=== PATIENT | male | born 1955 | race Caucasian/White ===

== ENCOUNTER 2019-05-21 10:55 | Outpatient (REF) | payer BC, SELFPAY ==
[2019-05-21 19:44] LABS: HCT 41.2 % (40.0-50.0); HGB 14.4 g/dL (13.5-17.5); Mean Corpuscular Hemoglobin 28.8 pg (27.0-33.0); Mean Corpuscular Volume 82.4 fL (80-95); Mean Platelet Volume 10.3 fL (8.0-11.0); Platelet Count 134 x1000/uL (130-400); White Blood Cell Count 4.31 k/cumm (4.4-10.8)
[2019-05-21 20:13] LABS: Anion Gap 10.8 mmol/L (3-11); BUN 24 mg/dL (7-18); CO2 25.2 mmol/L (21.0-32.0); CREATININE 0.92 mg/dL (0.70-1.30); Calculated LDL 156; Chloride 107 mmol/L (98-107); Cholesterol 200 mg/dL (50-200); Glucose 94 mg/dL (70-100); HDL Cholesterol 33 mg/dL (40-60); Potassium 4.3 mmol/L (3.5-5.1); Sodium 143 mmol/L (136-145); Triglyceride 58 mg/dL (30-150)
== END 2019-05-21 11:15 ==
LOC: NCHCN 10:55
PROVIDERS: PCP Internal Medicine; Visit Provider Nurse Practitioner Family
DX: Z00.00 Encounter for general adult medical examination without abnormal findings (principal); R73.01 Impaired fasting glucose; E78.00 Pure hypercholesterolemia, unspecified; I10 Essential (primary) hypertension; K13.70 Unspecified lesions of oral mucosa
CPT/HCPCS: 80048; 80061; 83721; 85027; 87070; 87205

== ENCOUNTER 2021-12-28 08:00 | Outpatient (REF) | payer BC, SELFPAY ==
[2021-12-28 16:16] LABS: Hemoglobin A1C 5.3 % (<5.7)
[2021-12-28 16:17] LABS: ALT 21 U/L (16-63); AST 19 U/L (15-37); Albumin 4.1 g/dL (3.4-5.0); Alkaline Phosphatase 56 U/L (46-116); Anion Gap 10.4 mmol/L (3-11); BUN 18 mg/dL (7-18); Bilirubin, Total 0.8 mg/dL (0.2-1.0); CO2 24.6 mmol/L (21.0-32.0); CREATININE 0.9 mg/dL (0.70-1.30); Calcium 9.3 mg/dL (8.5-10.1); Chloride 104 mmol/L (98-107); Glucose 95 mg/dL (74-106); Potassium 4.4 mmol/L (3.5-5.1); Sodium 139 mmol/L (136-145); Total Protein 7.3 g/dL (6.4-8.2)
[2021-12-29 10:07] LABS: Hepatitis C Ab w Rflx HCV PCR Negative (Negative)
[2021-12-29 10:17] LABS: HIV-1/2 Ag & Ab Screen Negative (Negative)
== END 2021-12-28 08:01 | disposition home or self-care (01) ==
LOC: LBN 08:00
PROVIDERS: Visit Provider Nurse Practitioner Family
DX: Z00.00 Encounter for general adult medical examination without abnormal findings (principal); E78.00 Pure hypercholesterolemia, unspecified; R73.03 Prediabetes; I10 Essential (primary) hypertension; Z11.4 Encounter for screening for human immunodeficiency virus [HIV]; Z11.59 Encounter for screening for other viral diseases
CPT/HCPCS: 80053; 86803; 87389; 83036

== ENCOUNTER 2022-01-19 02:47 | Outpatient (CLI) | payer BC, SELFPAY ==
--- NOTE | 2022-01-19 | DI.MRI_ITS ---
Exam(s) MR UPPER JOINT RT WO CLINICAL HISTORY: PAIN RT SHOULDER M25.511, FALL DECREASED ROM AND STRENGTH. TECHNIQUE: Multiplanar multisequence MRI was performed. COMPARISON: None FINDINGS: MR examination of the shoulder was performed according to the usual protocol. There is a moderate effusion of the glenohumeral joint. There is fluid in the subacromial subdeltoid bursa. Bones and labrum: There are prominent hypertrophic degenerative changes at the acromioclavicular join t. There are moderate marginal osteophytes of the glenoid and humeral head consistent with degenerat roseline change. There is apparent articular cartilage thinning of the humeral head. There is a probable superior and anterior labral tear.. Rotator cuff: There is a full-thickness tear of the supraspinatus tendon with fraying of the tendon, at the supraspinatus footprint, the tear measures up to about 12 millimeter in width and 3 millimete rs in height period portions of superior aspect of subscapularis tendon may also be torn at the humer al attachment. There is no gross retraction of subscapularis, the supraspinatus tendon does not appe ar significantly retracted period infraspinatus tendon shows marked thickening, particularly distally . There is some intra cysts substance tearing of the infraspinatus in the myotendinous junction andra on. Minor undersurface tearing may be present near the humeral attachment. Abnormal thickening of t eres minor tendon also appears to be present period. Rotator interval structures are poorly defined, biceps tendon is markedly displaced medially but not grossly torn period. There is no gross fatty infiltration of the supraspinatus muscle, however the muscle is probably mild ly decreased in size in comparison to its expected size. Less than 30 percent reduction in size. IMPRESSION: Rotator cuff tear involving supraspinatus tendon predominantly, as well as portions of infraspinatus and subscapularis tendon as described above. No gross retraction. Marked medial displacement biceps tendon consistent with a rotator interval tear. Probable SL AP labral tear. DATA REPOSITORY:
== END 2022-01-19 03:07 ==
PROVIDERS: Visit Provider Nurse Practitioner Family
DX: M25.511 Pain in right shoulder (principal); M25.411 Effusion, right shoulder; M19.011 Primary osteoarthritis, right shoulder; S46.011A Strain of muscle(s) and tendon(s) of the rotator cuff of right shoulder, initial encounter; M67.813 Other specified disorders of tendon, right shoulder; W19.XXXA Unspecified fall, initial encounter
CPT/HCPCS: 73221

== ENCOUNTER 2022-02-10 10:33 | Outpatient (CLI) | payer BC, SELFPAY ==
--- NOTE | 2022-02-10 09:45 | DI.RAD_ITS ---
Exam(s) XR SHOULDER RT COMPLETE 2+V EXAM: XR SHOULDER RT COMPLETE 2+V CLINICAL HISTORY: right shoulder pain. TECHNIQUE: 2D digital imaging was performed. COMPARISON: No exams were available for comparison FINDINGS: Two views No evidence of fracture or dislocation. Minimal degenerative changes. No osteophytes. No osseous l esions. Bone density is normal. IMPRESSION: DATA REPOSITORY: RADIATION DOSE DELIVERED:
--- OUTSIDE RECORDS SUMMARY | 2022-02-10 10:35 | XMS_ITS | Continuity of Care Document ---
:1955 Author Organization [facility] Address [address] [place] [address] Care Team Providers Name Role Phone Given Primary Care Physician Unavailable Goodman Attending Physician Unavailable Allergies, Adverse Reactions, Alerts Allergen Type Severity Reaction Last Updated Verified Status NO KNOWN DRUG ALLERGIES Allergy May 09, 2012 N Active Medications Active Medications Medication Dose Units Route Sig Start Date Status Terazosin 5 mg ORAL DAILY May 09, 2012 Active Amlodipine 5 mg ORAL DAILY May 09, 2012 Activ e Lisinopril [Zestril] 40 mg ORAL DAILY May 09, 2012 Active Pravastatin Sodium [Pravachol] 20 mg ORAL DAILY May 09, 2012 Active Aspirin 81 mg ORAL DAILY May 09, 2012 Active Problem List No problem information available. Procedures No known history of procedures. Relevant Diagnostic Tests and/or Laboratory Data Laboratory Results Test Date/Time Result Interp. Ref. Range Result Comment Urine Creatinine January 24, 209.2 mg/dL No Re ference 2016 11:02am Range established. Urine Random January 24, 1.1 Microalbumin 2016 11:02am Urine January 24, 5.3 ug/mg CR Normal: <3 0 ug/mg creatinine Microalbumin/Creatinin 2016 11:02am Microalbuminuria: 30 - 300 ug/mg creatinine e Ratio Clinical Album inuria: >300 ug/mg creatinine Sodium Level January 24, 142 mmol/L [phone] 11:02am Potassium Level January 24, 4.2 mmol/L 3.6-5.0 2016 11:02am Chloride Level January 24, 104 mmol/L 98-107 2016 11:02am Carbon Dioxide Level January 24, 27 mmol/L 2016 11:02am Anion Gap January 24 7-16 2016 11:02am Blood Urea Nitrogen January 24, 17 mg/dL -2016 11:02am Creatinine January 24, 0.9 mg/dL 0.66-1.25 2016 11:02am Glomerular Filtration January 24, > 60 mL/min Rate Calc 2017 11:02am Glucose Level January 24, 93 mg/dL 70-100 2017 11:02am Calcium Level January 24, 9.5 mg/dL 8.4-10.2 2017 11:02am Calcium Adjusted for January 24, 9.4 mg/dL 8.4-10.2 Albumin 2017 11:02am Total Bilirubin January 24, 1.2 mg/dL 0.2-1.3 2017 11:02am Aspartate Amino Transf January 24, 43 U/L 17-59 (AST/SGOT) 2017 11:02am Alanine January 24, 80 U/L High 21-72 Aminotransferase 2017 11:02am (ALT/SGPT) Total Protein January 24, 7.2 g/dL 6.3-8.2 2016 11:02am Albumin January 24, 4.4 g/dL 3.5-5.0 2016 11:02am Cholesterol Level January 24, 196 mg/dL 59-199 2016 11:02am HDL Cholesterol January 24, 28 mg/dL Low 40-60 The [place] Cholesterol Education Program (NCEP) has set the following guidelines (reference values) for cholesterol, HDL: 2016 11:02am Low HDL: <40 mg/dL Normal: 40-60 mg/dL Desirable: >60 mg/dL LDL Cholesterol January 24, 137.8 mg/dL High 0-129 2016 11:02am VLDL Cholesterol January 24, 30.2 mg/dL 0-32 2016 11:02am Cholesterol/HDL Ratio January 24, 7.00 High 0-3.9 2016 11:02am Triglycerides Level January 24, 151 mg/dL High 0-149 2016 11:02am Alkaline Phosphatase January 24, 57 U/L 38-126 2016 11:02am Advance Directives Advance Directive Response Recorded Date/Time Do we have a copy on file here at [facility]? Unknown M arch 2016 7:00am Does patient have an Advanced Directive? Yes January 24, 2017 10:57am Pt has a Living Will? Yes January 24, 2017 10:57am Pt has a Power of Night Custodian? Yes January 24, 2017 10:57am Chief Complaint and Reason for Visit Encounter Admit Date Chief Complaint Reason for Visit Departed Clinical January 24, 2017 10:57am Lab Hospital Discharge Instructions No known hospital discharge instructions. Hospital Discharge Medications Medication Dose Units Route Sig Qty Days Order Date Status In structions Terazosin 5 mg ORAL DAILY May 09, 2012 Active Amlodipine 5 mg ORAL DAILY May 09, 2012 Active Lisinopril 40 mg ORAL DAILY May 09, 2012 Active Pravastatin Sodium 20 mg ORAL DAILY May 09 2 Active Aspirin 81 mg ORAL DAILY May 09, 2012 Active Encounters Encounter Facility Location Admit/Visit Discharge/Departure Atte nding Date Date Provider Departed [facility] January 24, January 24, 2017 Meng [facility] 2016 10:57am 10:58am Dalila Functional Status No known functional status. Immunizations No known immunizations. Payers Payer Policy Type Covered Covered Relationship Subscriber Subs criber Id Name Democrat Democrat Id CBA BLUE Commercial LEATHA [id number] Spouse LEATHA [id number] TURNER 3 TURNER [facility] BLUE Commercial LOWELL TURNER [id number] Self/Same as LOWELL TOMPKINS [id number] CROSS Patient SELF PAY Personal Plan of Care No Known Plan of Care Information Social History No known social history. Vital Signs No known vital signs results.
--- OUTSIDE RECORDS SUMMARY | 2022-02-10 10:35 | XMS_ITS | Continuity of Care Document ---
:1955 Author Organization [facility] Address [address] [place] [address] Care Team Providers Name Role Phone Rex Primary Care Physician Unavailable Keira Attending Physician Unavailable Allergies, Adverse Reactions, Alerts [...] Problem List No problem information available. Procedures Procedure Date Status Cervical Spine 4 or 5 vw March 24, 2017 completed Relevant Diagnostic Tests and/or Laboratory Data Laboratory [...] creatinine Sodium Level January 24, 142 mmol/L [phone] 11:02am Potassium Level January 24, 4.2 mmol/L 3.6-5.0 2016 11:02am Chloride Level January 24, 104 mmol/L 98-107 2016 11:02am Carbon Dioxide Level January 24, 27 mmol/L 2016 11:02am Anion Gap January 24 7-16 2016 11:02am Blood Urea Nitrogen January 24, 17 mg/dL 07-23 11:02am Creatinine January 24, 0.9 mg/dL 0.66-1.25 2017 11:02am Glomerular Filtration January 24, > 60 mL/min Rate Calc 2017 11:02am Glucose Level January 24, 93 mg/dL 70-100 2017 11:02am Calcium Level January 24, 9.5 mg/dL 8.4-10.2 2017 11:02am Calcium Adjusted for January 24, 9.4 mg/dL 8.4-10.2 Albumin 2017 11:02am Total Bilirubin January 24, 1.2 mg/dL 0.2-1.3 2016 11:02am Aspartate Amino Transf January 24, 43 [...] mg/dL 0-32 2016 11:02am Cholesterol/HDL Ratio January 24 7.00 High 0-3.9 2016 11:02am Triglycerides Level January 24, 151 mg/dL High 0-149 2016 11:02am Alkaline Phosphatase January 24, 57 U/L 38-126 2016 11:02am Advance Directives Advance Directive Response Recorded Date/Time Do we have a copy on file here at [facility]? Unknown M arch 2016 7:00am Does patient have an Advanced Directive? Yes January 24, 2017 10:57am Pt has a Living Will? Yes January 24, 2017 10:57am Pt has a Power of Concrete Finisher? Yes January 24, 2017 10:57am Chief Complaint and Reason for Visit Encounter Admit Date Chief Complaint Reason for Visit Departed Clinical March 24, 2017 9:48am Xray Hospital Discharge Instructions No known hospital discharge [...] Discharge/Departure Atte nding Date Date Provider Departed [facility] March 24, March 24, 2017 [facility]49[facility] Dep[facility]ed [facility] 24[facility] 10:[facility] 10:58am Dalila Functional Status No known functional status. Immunizations No known immunizations. Payers Payer Name Policy Type Covered Covered Relationship Subscriber Sub scriber Constitution Party Constitution Party Id Id Culturalite [id number] Self/Same as LOWELL TOMPKINS [id number] [facility] Patient EMPLOYEES [employer] LEATHA [id number] Spouse LEATHA [id number] TURNER TOMPKINS [employer] Commercial LEATHA [id number] Spouse LEATHA [id number] TURNER TOMPKINS [facility] [employer] LOWELL [id number] Self/Same as LOWELL TOMPKINS [id number] CROSS (DO TURNER Patient NOT USE) SELF PAY Personal Plan of Care No Known Plan of Care Information Social History No known social history. Vital Signs No known vital signs results.
--- OUTSIDE RECORDS SUMMARY | 2022-02-10 10:35 | XMS_ITS ---
:1955 Author Care Team Providers Name Role Phone Prateek Kelley Primary Care Provider Unavailable Allergies Code Code System Name Reaction Severity Status Onset NKDA ? Medications Name Status Start Date Stop Date ? ? amlodipine 5 mg-benazepril 10 mg capsule Active ? Not available aspirin 81 mg tablet,delayed release Active ? Not available Fluzone Quad 2018-19(PF) 60 mcg(15 Active ? Not available mcgx4)/0.5 mL intramuscular syringe lisinopril 10 mg tablet Active ? Not avai lable pravastatin 40 mg tablet Active ? Not luis ilable terazosin 5 mg capsule Active ? Not avail able Problems None recorded. Procedures None recorded. Results Lab Results None recorded. Past Encounters 02/11/2021 Jackie Rutherford PA-C: [address] [facility], [address], [place] [address], Ph. Social History None recorded. Vaccine List Vaccine Type COVID-19, mRNA, LNP-S, PF, 100 mcg/0.5 m L dose (Moderna) 12/18/2020?0.5 mL 01/14/2021?0.5 mL Plan of Care Reminders Provider Appointments None ? ? recorded. Lab None ? ? recorded. Referral None ? ? recorded. Procedures None ? ? recorded. Surgeries None ? ? recorded. Imaging None ? ? recorded. Vitals None recorded.
--- OUTSIDE RECORDS SUMMARY | 2022-02-10 10:35 | XMS_ITS | Continuity of Care Document ---
:[address] [facility] Address [address] [place] [address] Care Team Providers Name Role Phone Rex Primary Care Physician Unavailable Rex Attending Physician Unavailable Allergies, Adverse Reactions, Alerts Allergen Type Severity Reaction Last Updated Verified Status No Known Drug Allergies Allergy May 09, 2012 N Active Medications Active Medications Medication Dose Units Route Sig Start Date Status Terazosin 5 MG ORAL DAILY May 09, 2012 Active Amlodipine 5 MG ORAL DAILY May 09, 2012 Activ e Lisinopril [Zestril] 40 MG ORAL DAILY May 09, 2012 Active Pravastatin Sodium [Pravachol] 20 MG ORAL DAILY May 09, 2012 Active Aspirin 81 MG ORAL DAILY May 09, 2012 Active Problem List No problem information available. Procedures No known history of procedures. Relevant Diagnostic Tests and/or Laboratory Data Laboratory Results Test Date/Time Result Interp. Ref. Range Result Comment Urine Creatinine May 16, 2018 202.1 mg/dL No R eference 12:59pm Range established. Urine Random May 16, 2018 1.1 Microalbumin 12:59pm Urine May 16, 2018 5.4 ug/mg CR Normal: < 30 ug/mg creatinine Microalbumin/Creatinin 12:59pm Mi croalbuminuria: 30 - 300 ug/mg creatinine e Ratio Clinical Album inuria: >300 ug/mg creatinine Sodium Level May 16, 2018 138 mmol/L 137-145 12:59pm Potassium Level May 16, 2018 4.4 mmol/L 3.6-5.0 12:59pm Chloride Level May 16, 2018 106 mmol/L 98-107 12:59pm Carbon Dioxide Level May 16, 2018 25 mmol/L 22-30 12:59pm Anion Gap May 16, 2018 7 7-16 12:59pm Blood Urea Nitrogen May 16, 2018 23 mg/dL 8-26 12:59pm Creatinine May 16, 2018 0.88 mg/dL 0.66-1.25 12:59pm Glomerular Filtration May 16, 2018 > 60 mL/min 60.0- Rate Calc 12:59pm Glucose Level May 16, 2018 77 mg/dL 70-100 12:59pm Calcium Level May 16, 2018 9.2 mg/dL 8.4-10.2 12:59pm Calcium Adjusted for May 16, 2018 9.3 mg/dL 8.4-10.2 Albumin 12:59pm Total Bilirubin May 16, 2018 1.1 mg/dL 0.2-1.3 12:59pm Aspartate Amino Transf May 16, 2018 25 U/L 17-59 (AST/SGOT) 12:59pm Alanine May 16, 2018 28 U/L 21-72 Aminotransferase 12:59pm (ALT/SGPT) Total Protein May 16, 2018 7.0 g/dL 6.3-8.2 12:59pm Albumin May 16, 2018 4.2 g/dL 3.5-5.0 12:59pm Cholesterol Level May 16, 2018 192 mg/dL 59-199 12:59pm HDL Cholesterol May 16, 2018 26 mg/dL Low 40-60 The [facility] Cholesterol Education Program (NCEP) has set the following guidelines (reference values) for cholesterol, HDL: 12:59pm Low HDL: <40 m g/dL Normal: 40-60 mg/dL Desirable: >60 mg/dL LDL Cholesterol May 16, 2018 149.0 mg/dL High 0-129 12:59pm VLDL Cholesterol May 16, 2018 17.0 mg/dL 0-32 12:59pm Cholesterol/HDL Ratio May 16, 2018 7.38 High 0-3.9 12:59pm Triglycerides Level May 16, 2018 85 mg/dL 0-149 12:59pm Alkaline Phosphatase May 16, 2018 52 U/L 38-126 12:59pm Prostate Specific May 16, 2018 0.543 ng/mL 0-4.5 Antigen Screen 12:59pm Hepatitis C IgG May 16, 2018 Negative Antibody 12:59pm Hepatitis C Antibody May 16, 2018 See comment Anti-HCV IgG not Comment 12:59pm detected. Patient is presumed not t o be infected wi th HCV. Advance Directives Advance Directive Response Recorded Date/Time Do we have a copy on file here at [facility]? Unknown M arch 2016 7:00am Does patient have an Advanced Directive? Yes January 24, 2017 10:57am Pt has a Living Will? Yes January 24, 2017 10:57am Pt has a Power of Boom Master? Yes January 24, 2017 10:57am Chief Complaint and Reason for Visit Encounter Admit Date Chief Complaint Reason for Visit Departed Clinical May 16, 2018 12:44pm Lab Hospital Discharge Instructions No known hospital discharge instructions. Hospital Discharge Medications Medication Dose Units Route Sig Qty Days Order Date Status In structions Terazosin 5 MG ORAL DAILY May 09, 2012 Active Amlodipine 5 MG ORAL DAILY May 09, 2012 Active Lisinopril 40 MG ORAL DAILY May 09, 2012 Active Pravastatin Sodium 20 MG ORAL DAILY May 09 2 Active Aspirin 81 MG ORAL DAILY May 09, 2012 Active Encounters Encounter Facility Location Admit/Visit Discharge/Departure Atte nding Date Date Provider Departed [facility] May 16, 2018 May 16, 2018 [facility] Dalila Functional Status No known functional status. Immunizations No known immunizations. Payers Payer Name Policy Type Covered Covered Relationship Subscriber Sub scriber Alliance Party Alliance Party Id Id [employer] [id number] Self/Same as LOWELL TOMPKINS [id number] [facility] Patient EMPLOYEES [employer] LEATHA [id number] Spouse LEATHA [id number] TURNER TOMPKINS [employer] Commercial LEATHA [id number] Spouse LEATHA [id number] TUNRER TOMPKINS [facility] [employer] LOWELL [id number] Self/Same as LOWELL TOMPKINS [id number] AMANDA (DO TURNER Patient NOT USE) SELF PAY Personal Plan of Care No Known Plan of Care Information Social History No known social history. Vital Signs No known vital signs results.
== END 2022-02-10 10:34 | disposition home or self-care (01) ==
LOC: DIORS 10:33
PROVIDERS: PCP Nurse Practitioner Family; Visit Provider Student in an Organized Health Care Education/Training Program
DX: M25.511 Pain in right shoulder (principal)
CPT/HCPCS: 73030

== ENCOUNTER 2022-03-09 02:49 | Outpatient (CLI) | payer BC, SELFPAY ==
[2022-03-09 11:47] LABS: Source Nasal/Nares
[2022-03-09 14:39] LABS: COVID-19 PCR Negative (Negative)
== END 2022-03-09 02:50 | disposition home or self-care (01) ==
LOC: LBO 02:50
PROVIDERS: Student in an Organized Health Care Education/Training Program; PCP Nurse Practitioner Family; Visit Provider Student in an Organized Health Care Education/Training Program
DX: Z20.822 Contact with and (suspected) exposure to COVID-19 (principal); Z01.818 Encounter for other preprocedural examination
CPT/HCPCS: 87635

== ENCOUNTER 2022-03-11 10:52 | Day surgery (SDC) | payer BC, SELFPAY ==
[2022-03-11] VITALS (9 sets, daily range): BP systolic 99–155; BP diastolic 59–103; PULSE 52–60; RESP 12–22; TEMP 36.5–37; O2SAT 94–100; BMI 27.8
--- NOTE | 2022-03-11 11:22 | W.ANESPRE ---
General Info Date of Service Date Performed: 03/11/22 Height: 5 ft 10 in Weight: 88.2 kg Body Mass Index (BMI): 27.8 Surgical Procedure: Operation Date: 03/11/22 13:10 Proposed Procedure Side Surgeon p Shoulder Rotator Cuff Arthroscopic w/ Extensive Debridement, Biceps Tenodesis, Subacromial decompression, Poss. allograft superior capsular reconstruction Right Mikel García MD Meds Allergies and Home Medications Allergies Allergy/AdvReac Type Severity Reaction Status Date / Time atenolol Allergy Intermediate wheezing Verified 03/11/22 11:04 doxycycline AdvReac Mild gi upset Verified 03/11/22 11:04 Home Medication Medication Instructions Recorded amlodipine 5 mg tablet 5 mg PO DAILY 01/05/22 aspirin 81 mg tablet,delayed 81 mg PO DAILY 01/05/22 release (Adult Aspirin Regimen) lisinopril 10 mg tablet 10 mg PO DAILY 01/05/22 pravastatin 40 mg tablet 40 mg PO QHS 01/05/22 terazosin 5 mg capsule 5 mg PO DAILY 01/05/22 naproxen 250 mg tablet 250 - 500 mg PO BID PRN #40 tab 03/11/22 oxycodone 5 mg tablet 5 - 10 mg PO Q4H PRN #18 tab MDD 03/11/22 30 mg Current Visit Medications: Current Medications Generic Name Dose Route Start Last Admin Trade Name Freq PRN Reason Stop Dose Admin Ringer's Solution 1,000 mls @ 100 mls/hr 03/11/22 06:00 IV 04/09/22 23:59 INFUSION BECKA Cefazolin Sodium/Dextrose 2 gm in 50 mls @ 100 mls/hr 03/11/22 06:00 Ancef Duplex IVPB 03/11/22 16:00 PREOP BECKA IV Miscellaneous Supplies 1 each 03/11/22 06:00 Iv Access IV 04/09/22 23:59 DIRECTED BECKA Sodium Chloride 0 ml 03/11/22 06:00 Normal Saline Flush 10 Ml Syr IV 04/09/22 23:59 PRN PRN Sodium Chloride 0 ml 03/11/22 06:00 Normal Saline 10 Ml Vial IJ 04/09/22 23:59 DIRECTED PRN Sterile Water 0 ml 03/11/22 06:00 Water,Injection,Sterile 10 Ml Vial IJ 04/09/22 23:59 DIRECTED PRN PFSH Active Problems Active Problems: Problem Status Onset Code Bursitis of right shoulder M75.51 Tendonitis of long head of biceps brachii of right shoulder M75.21 Traumatic tear of right rotator cuff ~01/2021 S46.011A Carpal tunnel syndrome on right G56.01 Screening for colon cancer Z12.11 Prediabetes R73.03 Medical History Medical History Hypercholesterolemia Hypertension Pain in right shoulder Tobacco Smoking/Tobacco Use Status: Never Alcohol Alcohol Intake: current Alcohol intake frequency: a few times a week Alcohol type: wine Substance Use Substance use: Never Substance use type: does not use Vital Signs and Lab Results Vital Signs Most Recent Vital Signs in EMR: Most Recent Vital Signs Temp Pulse Resp BP Pulse Ox 36.5 C 60 16 148/101 H 99 03/11/22 11:07 03/11/22 11:07 03/11/22 11:07 03/11/22 11:07 03/11/22 11:07 Lab Results Blood Type / Crossmatch: No Data to Display Complete Blood Count: No Data to Display Complete Metabolic Panel: No Data to Display Liver Function Panel: No Data to Display Coagulation Panel: No Data to Display Cardiac Panel: No Data to Display Arterial Blood Gas: No Data to Display Venous Blood Gas: No Data to Display Pancreas Panel: No Data to Display Thyroid Panel: No Data to Display Infectious Disease: Coronavirus (COVID-19)(PCR) Negative (Negative) 03/09/22 08:50 03/09/22 Coronavirus 2019 Source Nasal/Nares 03/09/22 08:50 03/09/22 Blood Cultures: No Data to Display Toxicology Panel: No Data to Display Anesthesia Assessment and Plan Anesthesia History Personal History: No History of Anesthesia Complications Family History: No Family History of Anesthesia Complications Exercise Tolerance Exercise Tolerance: Metabolic Equivalents>4 Pertinent Negatives Pertinent Negatives: No Symptoms of GERD, No Major Cardiovascular Symptoms or Complaints, No Major Pulmonary Symptoms or Complaints and No History of CVA/TIA Cardiac & Pulmonary Exam Cardiac Exam: Normal S1/S2 Heart Sounds Pulmonary Exam: Clear Bilateral Breath Sounds Implantable Cardiac Device Does patient have a Pacemaker or an ICD?: No Airway Exam Known Difficult Airway: No Mallampati Class: 2 Mouth Opening: Normal (> 3cm) Thyromental Distance: Greater than 3 cm Neck Range of Motion: Full ROM Neck Circumference: Normal Teeth Condition: Loose or Chipped (Missing 2 molars) ASA Classification ASA Score: ASA 2 Emergency Case?: No NPO Status NPO Status: NPO Clears >2 hours, Solids >8 hours Anesthesia Plan Resuscitation Status: Full Code Anesthesia Technique: General Anesthesia Airway Planned: Endotracheal Tube Monitors Used: Standard Monitors
[2022-03-11] MEDS: Lactated Ringers 1,000 ML 100 ML IV (11:52)
[2022-03-11] MEDS: ceFAZolin 2 GM/50 ML BAG IVPB (12:20)
[2022-03-11] MEDS: EPINEPHrine 30 MG/30 ML VIAL (14:33)
--- NOTE | 2022-03-11 14:53 | PDOC.DSDIS_ITS ---
Discharge Plan Disposition Patient Disposition: HOME Condition: Stable Discharge Details Reason For Visit: Right shoulder surgery Attending Provider: Mikel García Primary Care Provider: Buzz Cotto Home Meds and New Rx's Prescriptions: New naproxen 250 mg tablet 250 - 500 mg PO BID PRNQty: 40 0RF Rx Instructions: take with a meal oxycodone 5 mg tablet 5 - 10 mg PO Q4H MDD 30 mg PRN (Reason: moderate to severe pain) Qty: 18 0RF Continued pravastatin 40 mg tablet 40 mg PO QHS 0RF lisinopril 10 mg tablet 10 mg PO DAILY 0RF amlodipine 5 mg tablet 5 mg PO DAILY 0RF terazosin 5 mg capsule 5 mg PO DAILY 0RF aspirin [Adult Aspirin Regimen] 81 mg tablet,delayed release (DR/EC) 81 mg PO DAILY 0RF Discharge Instructions Additional Instructions: Surgery: Right shoulder arthroscopy with rotator cuff repair, biceps tenodesis, extensive debridement, and subacromial decompression. Activity: For 6 weeks, you should keep your arm at your side in a neutral position at all times except for physical therapy. Do not try to lift or raise your arm using your own muscles. You should use the sling whenever you are out of the house. You may have to adjust the abduction pillow or remove it for comfort. At home it is best to remove the sling and rest the arm on a pillow at your side or support the operative side with your other hand. You may allow the arm to dangle at your side. A physical therapy prescription will be sent electronically to begin in about 3 weeks. Prescriptions: Aspirin 81 mg take 1 daily to prevent a blood clot for 2 weeks Naproxen 250 mg take 1-2 every 12 hours with a meal as needed for moderate pain Oxycodone 5 mg take 1-2 every 4-6 hours as needed for severe pain You may use [id number] Tylenol (acetaminophen) as needed for mild pain. These pain medications may be taken all at once or in different combinations as needed. Also, recommend Colace (docusate) as a stool softener as surgery and pain medicine cause constipation. Dressings: Remove shoulder bandage after 3 days. Leave the sticky Steri-Strips in place until they fall off or remove them after you shower. Cover the incisions with Band-Aids or leave them open to air. You may shower after 5 days. Follow-up: 10-[address] García You may take off the leg compression stockings this evening at home. You may also leave them on a few days longer if you have a history of leg swelling or edema. Let us know right away if you develop any redness, drainage, fevers, chest pain, or trouble breathing. Do not drink alcohol or drive for at least 24 hours after anesthesia. Please call the office during business hours with any questions or concerns. Referrals: Mikel García MD [ [facility]] - Discharge Orders Discharge Orders: Discharge Order (Routine); Ordered 03/11/22 Ordered By: Mikel García DS: Diagnosis Discharge Diagnosis (1) Traumatic tear of right rotator cuff: Status: Acute (2) Tendonitis of long head of biceps brachii of right shoulder: Status: Acute (3) Bursitis of right shoulder: Status: Acute
--- NOTE | 2022-03-11 15:09 | W.PM.OP ---
Date of service: 03/11/22 Time of Service: 13:00 Operative Note Operative Note DATE OF PROCEDURE: 03/11/22 PRE-OP DIAGNOSIS: Right: 1. Rotator cuff tear 2. LHB tendinopathy 3. Bursitis POST-OP DIAGNOSIS: same PROCEDURE: Right: 1. Rotator cuff repair, CPT# 40541. This involved repair of the subscapularis and supraspinatus using anchors and sutures to reattach the rotator cuff back to the footprint of the lesser and greater tuberosity. 2. Arthroscopic biceps tenodesis, CPT# 11839. This involved arthroscopically suturing and reattaching the long head of the biceps tendon to the proximal humerus at the superior margin of the bicipital groove with a screw at the correct tension. 3. Extensive debridement, CPT# 08808. This involved using arthroscopic hand instruments, power instruments, and radiofrequency instruments to release the long head of the biceps tendon and debride areas of labral tearing, synovitis, and chondromalacia about the lesser and greater tuberosities within the glenohumeral joint anteriorly, superiorly and posteriorly. 4. Subacromial decompression with partial acromioplasty, CPT# 56540. This involved using arthroscopic power instruments and a radiofrequency wand to complete a bursectomy and remove bone spurs on the undersurface of the acromion. The assistant community director was medically required in order to help assist in techniques above, which require positioning the arm, holding the arthroscope, and manipulating multiple instruments and sutures at the same time. This cannot be done without the help of an experienced assistant community director. SURGEON: Mikel García HEALTH TECH: Rachel Grayson ANESTHESIA TYPE: General LMA/ETT and Primary Nerve Block Refer to Anesthesia Record ESTIMATED BLOOD LOSS: 20 PATHOLOGY: none sent COMPLICATIONS: None Patient was transported to: PACU Patient's condition: stable Implants: Arthrex: 4.75mm SwiveLocks x 3 Indications: The patient was diagnosed with the above conditions and appropriately indicated for surgical intervention. Please see complete medical record for details. Findings: Exam under anesthesia: Full range of motion, no instability Glenohumeral joint: Significant superior and anterior synovitis. Disrupted upper margin subscapularis tearing,, medial biceps subluxation dislocation of the bicipital groove, disrupted S GH L and CHL. Subacromial space: Significant bursitis. Full-thickness retracted supraspinatus U-type rotator cuff tear with only partial minor infraspinatus involvement. Chronic fibrinous changes about greater tuberosity. Minimal undersurface acromial bone spur. Procedure Description: In the operating room, general anesthesia was induced. Bilateral shoulders were examined. The patient was positioned in the beachchair position. All bony prominences were well-padded. Preoperative antibiotics were administered. The shoulder was prepped and draped in the usual sterile fashion. The correct patient, procedure, and side of the procedure were all verified prior to incision. Starting through the posterior portal a standard complete diagnostic arthroscopy was performed of the glenohumeral joint including inspection of the long head of the biceps, anterior and superior labrum, subscapularis tendon, supraspinatus and infraspinatus tendons, and axillary recess. The glenoid and humeral head cartilage as well as the posterior labrum were inspected from an anterior viewing portal. Significant findings and interventions noted above. A cannula was inserted the superior anterior lateral portal through the full-thickness rotator cuff tear and additional cannula anteriorly just medial to the retracted biceps sling biceps and subscapularis injury. Working through both portals the [facility] L was released and capsular adhesions and synovitis was debrided to a stable margin. The upper margin of the lesser tuberosity was prepared to optimize bone tendon healing as well as the articular and medial aspect of the greater tuberosity. An all-arthroscopic suprapectoral biceps tenodesis was performed through an anterior portal using a Loop N Tack method with a SutureTape FiberLink cinched around and through the tendon. The biceps was tenotomized from the labrum and reduced to the superior aspect of the bicipital groove with sutures brought out the anterior portal for later repair. The arm was positioned in external rotation to avoid over tensioning the subscapularis repair. The self retrieving suture passer was used to pass a FiberTape through the central aspect of the upper lateral subscapularis tear. These tapes were brought out the anterior portal. The undersized punch used to localize placement of the SwiveLock anchor on the lesser tuberosity with solid bone encountered and the tap used prior to suture anchor deployment with appropriate tension on the subscapularis repair and biceps tenodesis secured at the superior aspect bicipital groove. Starting through the posterior portal, the arthroscope was directed into the subacromial space. A lateral 50 yard line lateral portal was created. A combination of power instruments and a radiofrequency ablator were used to debride bursitis anteriorly, posteriorly, and laterally as well as expose and smooth minimal bone spurring on the undersurface of the acromion. The coracoacromial ligament was preserved. The bursectomy was completed viewing laterally and working from posteriorly and the rotator cuff was thoroughly inspected with findings noted above. Perri cannula was inserted at the lateral 50 yard line and additional passport at the posterior superior lateral portal. The supraspinatus tear was retracted and delaminated from a largely intact infraspinatus tendon. The supraspinatus had a chronic changes with limited excursion medial to lateral but combining anterior to posterior and posterior anterior tissue mobilization the tear could be released over the majority of the greater tuberosity without undue tension. The greater tuberosity was finished preparing bone tendon healing. Appropriate anterior medial and posterior releases of the rotator cuff tear and excursion confirmed. The self retrieving suture passer used to pass a horizontal inverted FiberTape mattress suture in the posterior aspect of the tear and an additional FiberLink in cinch mode which was done through through the infraspinatus as well as through the reduced using the FiberTape's for tension more posterior aspect of the supraspinatus. A percutaneous superior portal was used to localize placement of SwiveLock anchor. The regular punch was used given the prior hard bone encountered and the hard bone here at the somewhat lateral posterior central greater tuberosity cracked during punch placement. The small flap of bone of the greater tuberosity was removed with the tissue grasper and the mechanical shaver and rasp was used to reprepare the greater tuberosity to a smooth and stable bony margin. There is no additional propagation of the bone. The punch was then used to finish preparing for the suture anchor, which was deployed with good bony fixation and tested with no motion or issues with suture anchor security. The double loaded suture left for later possible margin convergence or other repair. Anteriorly inverted horizontal mattress using FiberTape and anterior laterally FiberLink in cinch mode were placed in a similar fashion. Arm rotation was optimized and care was taken to localize a more anterior and lateral anchor with gentle undersized punch used and no issues with bone fixation. The suture anchor was deployed with appropriate tension on this remainder of the repair. The repair was inspected there was excellent tissue coverage over the greater tuberosity with strong fixation posteriorly anteriorly and the tendon draping nicely over the prepared footprint. The self retrieving suture passer was used to place a simple stitch from the posterior anchor through the anterior reduced tissue secured with SMC knots and repeat with an additional posterior tissue for added fixation and some additional margin convergence. Lastly, the anterior lateral anchor repair suture was shuttled more medially with a simple stitch secured with SMC knots backing up fixation already present. The arm was taken through range of motion. The repair was solid. The shoulder was drained of arthroscopic fluid. All portal sites were copiously irrigated. These incisions were closed using 3-0 Monocryl in a buried fashion and then covered with Mastisol, Steri-Strips, Xeroform, dry gauze, and ABDs. The dressings were covered and secured with Medipore tape. The operative extremity was placed into a sling for immobilization. The patient awoke from anesthesia without complication and was transferred to the recovery room in a stable condition.
--- NOTE | 2022-03-11 15:27 | W.ANESNERVE ---
Nerve Block Single Injection Procedure Date and Time Date Performed: 03/11/22 Procedure Start: 11:55 Location Where Procedure Performed Procedure Location: Day Surgery Unit Reason Performed: Postoperative Analgesia Requesting Provider: Mikel García Timeout Performed Timeout Performed: Yes Monitoring Used ECG, Blood Pressure, SpO2 and See EMR for corresponding vital signs Sterility Sterility: Hand Hygiene, Surgical Cap, Surgical Mask, Sterile Gloves and Chlorhexidine Sedation Given During Procedure Sedation Given (Indicate Dose Given): Versed IV Dose:: 2mg Patient Mental Status Patient Mental Status: Awake Nerve Block 1st Nerve Block: Laterality: Right Block Type: Supraclavicular Needle / Catheter Used: 80mm SonoPlex II Local Anesthetic Bolus (Indicate Dose Given): Lidocaine used for local infiltration of skin, Injected in 3-5ml increments after negative blood aspiration and Bupivacaine 0.5% Dose:: 20ml Additives (Indicate Dose Given): None Ultrasound: Sterile probe cover and gel used Ultrasound Image Saved?: Yes Nerve Stimulator: Not Used Paresthesia: None Procedure Tolerated: No Complications and Patient tolerated well Procedure Outcome: Successful Performed By: Francois Cox
--- NOTE | 2022-03-11 15:38 | W.ANESPOSTOP ---
Postoperative Evaluation Date, Time and Location Date Performed: 03/11/22 Time Performed: 15:38 Patient Location: PACU Vital Signs Most Recent Imported Vital Signs: Most Recent Vital Signs Temp Pulse Resp BP Pulse Ox 36.6 C 57 L 18 117/87 94 03/11/22 15:30 03/11/22 15:30 03/11/22 15:30 03/11/22 15:30 03/11/22 15:30 Pain Score Most Recent Pain Score: Most Recent Pain Score Pain Level 3 03/11/22 15:30 Assessment Mental Status: Awake (Alert & Oriented to Patient Baseline) Airway and Respiratory Function: Patent airway with normal (patient baseline) respiratory exam Cardiovascular Function: Hemodynamically Stable Hydration Status: Adequately Hydrated Nausea & Vomiting: No Nausea or Vomiting Pain: Pain is tolerable per patient Peripheral Nerve Block: Regional nerve block not resolved at time of post operative discharge
[2022-03-11] MEDS: fentaNYL 100 MCG/2 ML VIAL IVP (15:41)
[2022-03-11] MEDS: oxyCODONE 5 MG TAB PO (16:21)
== END 2022-03-11 17:15 | disposition home or self-care (01) ==
PROVIDERS: PCP Nurse Practitioner Family; Visit Provider Student in an Organized Health Care Education/Training Program
PROC: (CPT 29827; principal; 2022-03-11 13:00)
DX: M75.101 Unspecified rotator cuff tear or rupture of right shoulder, not specified as traumatic (principal); M75.51 Bursitis of right shoulder; M75.21 Bicipital tendinitis, right shoulder; R73.03 Prediabetes
CPT/HCPCS: 29827; 29823; 29828; 29826; 76942; J0690; J1100; J1885; J2001; J2250; J2370; J2405; J3010

== ENCOUNTER 2022-07-12 07:24 | Day surgery (SDC) | payer BC, SELFPAY ==
--- NOTE | 2022-07-12 06:17 | COLE_ITS ---
Colonoscopy Report Date of procedure: 07/12/22 Pre-op diagnosis general: Colon Cancer Screening Post-op diagnosis procedure note: other (internal hemorrhoids and diverticulosis) Procedure: Colonoscopy and internal hemorrhoid banding Surgeon: Betzy Schrader Anesthesia Type: General:No Airway Estimated blood loss (mL): 5 Pathology: none sent Complications: None Disposition: same day Indications: The patient is here for Colonoscopy pre-op.?He reports that his last Colonoscopy was 10 years ago which he believes was normal.??He has no family history of colon cancer. He has not had any bowel habit changes. -Discussed colonoscopy bowel prep as well as the procedure. Discussed possible complications of the procedure to include bleeding, pain, perforation, missed small lesion/polyp, sore throat, aspiration and adverse reaction to the medications. Questions were answered to patient?s satisfaction. No guarantees were implied or given.? Prep: Miralax/Dulcolax Procedure Start Time: 09:04 Procedure End Time: 09:23 Retraction Time: 9 minutes Findings: Grade 3 internal hemorrhoids Moderate descending and sigmoid diverticulosis Procedure Description: After informed consent was obtained the patient was taken to the procedure room and placed in a left decubitous position. Monitors were applied and a time out was done. The patients name, date of , procedure, allergies to medications and metal in their body was reviewed. The patient was then sedated. Once sedated and comfortable a rectal exam was done. External exam was normal. Internal exam revealed a normal sphincter tone and no palpable masses. The prostate felt enlarged but smooth. The scope was then introduced and retro-flexed. Grade 3 internal hemorrhoids were identified. No polyps or masses were identified on retro-flexion. The scope was then advanced to the cecum without difficulty. The ileocecal vlave and appendiceal orifice were identified. The prep was good. The scope was then slowly retracted over 9 minutes back into the rectum. There were no polyps and there was no diverticulosis noted. The scope was removed. Anoscopy was performed and 3 large hemorrhoids were banded without difficulty. The patient was woken up and taken back to Same day surgery in st able condition. The patient tolerated the procedure well and there were no immediate complications.
--- NOTE | 2022-07-12 06:18 | W.PM.DSUDISC ---
Discharge Plan Disposition Patient Disposition: HOME Condition: Good Discharge Details Reason For Visit: colonoscopy Attending Provider: Betzy Schrader Primary Care Provider: Buzz Cotto Home Meds and New Rx's Prescriptions: Continued pravastatin 40 mg tablet 40 mg PO QHS lisinopril 10 mg tablet 10 mg PO DAILY amlodipine 5 mg tablet 5 mg PO DAILY terazosin 5 mg capsule 5 mg PO DAILY aspirin [Adult Aspirin Regimen] 81 mg tablet,delayed release (DR/EC) 81 mg PO DAILY Discontinued bisacodyl [Dulcolax (bisacodyl)] 5 mg tablet,delayed release (DR/EC) 5 mg PO ONCE Qty: 4 0RF Rx Instructions: Take according to provider's instructions for colonoscopy prep. polyethylene glycol 3350 17 gram/dose powder 17 g PO ONCE Qty: 238 0RF Rx Instructions: To be taken as directed by prescriber's office for colonoscopy prep. Discharge Instructions Instructions: Diverticulosis (DC), Hemorrhoids (DC), Rubber Band Ligation (DC) Additional Instructions: Findings: Internal hemorrhoids and diverticulosis Follow up: 10 years for next colonoscopy Please call if you develop: fevers >101.5 Nausea or Vomiting Abdominal pain that is not transient Rectal bleeding that is more then a tbsp A hard abdomen and inability to pass gas DAY SURGERY UNIT POST ENDOSCOPY INSTRUCTIONS Instructions for everyone who is given Anesthesia: For your safety, please do the following for the next 24 Hours: a. Do not drive or operate dangerous equipment b. Do not drink alcohol beverages or use any recreational drugs for the first 24 hours or while taking pain medications. The medications in your body may have a reaction that can be dangerous. c. Do not make any important decisions or sign any important papers 1. Generally there are no restrictions on your activity after a day or so has gone by, but you may feel a bit fatigued for a few days. 2. After you arrive home you may have a light meal and return to a normal diet as you can tolerate it without feeling sick to your stomach. 3. After surgery, you may feel pain or discomfort. This should be only transient, but if it persists please contact your doctor. 4. If there are any questions regarding the findings of your procedure, please feel free to contact your doctor. 6. If you are unable to contact your doctor with a problem, contact the hospital at [phone]. 7. Continue all your regular medications unless directed otherwise. I understand the above instructions and have no questions. Signature of Patient or Responsible Adult Escort Date/Time Name of Responsible Adult Escort Signature of Nurse Date/Time Activity:: Activity as Tolerated Diet:: high fiber diet Discharge Orders Discharge Orders: Discharge Order (Routine); Ordered 07/12/22 Ordered By: Betzy Schrader
[2022-07-12 07:43] VITALS: BP 135/94; PULSE 57; RESP 18; TEMP 36.3; O2SAT 99
[2022-07-12] MEDS: Lactated Ringers 1,000 ML 80 ML IV (08:03)
[2022-07-12 09:04] VITALS: BMI 26.4
--- NOTE | 2022-07-12 09:04 | W.ANESPRE ---
General Info Date of Service Date Performed: 07/12/22 Height: 5 ft 10 in Weight: 83.4 kg Body Mass Index (BMI): 26.4 Surgical Procedure: Operation Date: 07/12/22 09:40 Proposed Procedure Side Surgeon p Colonoscopy Betzy Schrader MD s Possible Hemorrhoid Banding Betzy Schrader MD Meds Allergies and Home Medications Allergies Allergy/AdvReac Type Severity Reaction Status Date / Time atenolol Allergy Intermediate wheezing Verified 07/12/22 07:41 doxycycline AdvReac Mild gi upset Verified 07/12/22 07:41 Home Medication Medication Instructions Recorded amlodipine 5 mg tablet 5 mg PO DAILY 01/05/22 aspirin 81 mg tablet,delayed 81 mg PO DAILY 01/05/22 release (Adult Aspirin Regimen) lisinopril 10 mg tablet 10 mg PO DAILY 01/05/22 pravastatin 40 mg tablet 40 mg PO QHS 01/05/22 terazosin 5 mg capsule 5 mg PO DAILY 01/05/22 bisacodyl 5 mg tablet,delayed 5 mg PO ONCE #4 tabs 07/01/22 release (Dulcolax (bisacodyl)) polyethylene glycol 3350 17 17 g PO ONCE #238 grams 07/01/22 gram/dose oral powder Current Visit Medications: Current Medications Generic Name Dose Route Start Last Admin Trade Name Freq PRN Reason Stop Dose Admin Hyoscyamine Sulfate 0.125 mg 07/12/22 06:18 Hyoscyamine 0.125 Mg Sl/Oral/Chew SL DIRECTED PRN Ringer's Solution 1,000 mls @ 80 mls/hr 07/12/22 06:00 07/12/22 08:03 IV 08/08/22 23:59 80 mls/hr INFUSION BECKA Administration IV Miscellaneous Supplies 1 each 07/12/22 06:00 Iv Access IV 08/08/22 23:59 DIRECTED BECKA Ondansetron HCl 4 mg 07/12/22 06:18 Ondansetron 4 Mg/2 Ml Vial IVP Q4H PRN PRN Nausea / Vomiting Sodium Chloride 0 ml 07/12/22 06:00 Normal Saline Flush 10 Ml Syr IV 08/08/22 23:59 PRN PRN Sodium Chloride 0 ml 07/12/22 06:00 Normal Saline 10 Ml Vial IJ 08/08/22 23:59 DIRECTED PRN Sterile Water 0 ml 07/12/22 06:00 Water,Injection,Sterile 10 Ml Vial IJ 08/08/22 23:59 DIRECTED PRN PFSH Active Problems Active Problems: Problem Status Onset Code Traumatic tear of right rotator cuff ~01/2021 S46.011A Carpal tunnel syndrome on right G56.01 Screening for colon cancer Z12.11 Medical History Medical History Bursitis of right shoulder Hypercholesterolemia Hypertension Pain in right shoulder Prediabetes Tendonitis of long head of biceps brachii of right shoulder Surgical History Surgical History Status post arthroscopy of right shoulder (03/11/22) Tobacco Smoking/Tobacco Use Status: Never Alcohol Alcohol Intake: current Alcohol intake frequency: a few times a week Alcohol type: wine Substance Use Substance use: Never Substance use type: does not use Vital Signs and Lab Results Vital Signs Most Recent Vital Signs in EMR: Most Recent Vital Signs Temp Pulse Resp BP Pulse Ox 36.3 C L 57 L 18 135/94 H 99 07/12/22 07:43 07/12/22 07:43 07/12/22 07:43 07/12/22 07:43 07/12/22 07:43 Lab Results Blood Type / Crossmatch: No Data to Display Complete Blood Count: No Data to Display Complete Metabolic Panel: No Data to Display Liver Function Panel: No Data to Display Coagulation Panel: No Data to Display Cardiac Panel: No Data to Display Arterial Blood Gas: No Data to Display Venous Blood Gas: No Data to Display Pancreas Panel: No Data to Display Thyroid Panel: No Data to Display Infectious Disease: No Data to Display Blood Cultures: No Data to Display Toxicology Panel: No Data to Display Anesthesia Assessment and Plan Anesthesia History Personal History: No History of Anesthesia Complications Family History: No Family History of Anesthesia Complications Exercise Tolerance Exercise Tolerance: Metabolic Equivalents>4 Pertinent Negatives Pertinent Negatives: No Symptoms of GERD, No Major Cardiovascular Symptoms or Complaints, No Major Pulmonary Symptoms or Complaints and No History of CVA/TIA Cardiac & Pulmonary Exam Cardiac Exam: Normal S1/S2 Heart Sounds Pulmonary Exam: Clear Bilateral Breath Sounds Implantable Cardiac Device Does patient have a Pacemaker or an ICD?: No Airway Exam Known Difficult Airway: No Mallampati Class: 2 Mouth Opening: Normal (> 3cm) Thyromental Distance: Greater than 3 cm Neck Range of Motion: Full ROM Neck Circumference: Normal Teeth Condition: Loose or Chipped (Missing 2 molars) ASA Classification ASA Score: ASA 2 Emergency Case?: No NPO Status NPO Status: NPO Clears >2 hours, Solids >8 hours Anesthesia Plan Resuscitation Status: Full Code Anesthesia Technique: General Anesthesia Airway Planned: Natural Airway Monitors Used: Standard Monitors
[2022-07-12 09:28] VITALS: BP 147/99; PULSE 60; RESP 14; TEMP 36.7; O2SAT 98
[2022-07-12] MEDS: Hyoscyamine 0.125 MG SL/ORAL/CHEW SL (09:58)
[2022-07-12] MEDS: traMADol 50 MG TAB PO (09:58)
[2022-07-12 10:08] VITALS: BP 159/108; PULSE 50; RESP 20; TEMP 36.3; O2SAT 100
[2022-07-12 10:55] VITALS: BP 175/104; PULSE 54; RESP 18; TEMP 36.3; O2SAT 99
--- NOTE | 2022-07-12 10:59 | W.ANESPOSTOP ---
Postoperative Evaluation Date, Time and Location Date Performed: 07/12/22 Time Performed: 11:00 Patient Location: Day Surgery Unit Vital Signs Most Recent Imported Vital Signs: Most Recent Vital Signs Temp Pulse Resp BP Pulse Ox 36.7 C 60 14 147/99 H 98 07/12/22 09:28 07/12/22 09:28 07/12/22 09:28 07/12/22 09:28 07/12/22 09:28 Pain Score Most Recent Pain Score: Most Recent Pain Score Pain Level 6 07/12/22 09:28 Assessment Mental Status: Awake (Alert & Oriented to Patient Baseline) Airway and Respiratory Function: Patent airway with normal (patient baseline) respiratory exam Cardiovascular Function: Hemodynamically Stable Hydration Status: Adequately Hydrated Nausea & Vomiting: No Nausea or Vomiting Pain: Pain is tolerable per patient (Pain level 2/10) Peripheral Nerve Block: Patient did not receive a nerve block
== END 2022-07-12 11:45 | disposition home or self-care (01) ==
PROVIDERS: PCP Nurse Practitioner Family; Visit Provider Surgery
PROC: 0DJD8ZZ Inspection of Lower Intestinal Tract, Via Natural or Artificial Opening Endoscopic (ICD-10-PCS; CPT 45378; principal; 2022-07-12 09:30)
DX: Z12.11 Encounter for screening for malignant neoplasm of colon (principal); K64.2 Third degree hemorrhoids; K57.30 Diverticulosis of large intestine without perforation or abscess without bleeding; R73.03 Prediabetes
CPT/HCPCS: 45378; 46221; J3490

== ENCOUNTER 2023-04-05 18:19 | Outpatient (REF) | payer BC, SELFPAY ==
[2023-04-05 16:09] LABS: Hemoglobin A1C 5.4 % (<5.7)
[2023-04-05 16:17] LABS: ALT 29 U/L (16-63); AST 22 U/L (15-37); Alkaline Phosphatase 63 U/L (46-116); Anion Gap 10.1 mmol/L (3-11); BUN 20 mg/dL (7-18); Bilirubin, Total 0.6 mg/dL (0.2-1.0); CO2 24.9 mmol/L (21.0-32.0); CREATININE 0.9 mg/dL (0.70-1.30); Calcium 9.3 mg/dL (8.5-10.1); Calculated LDL 160 mg/dL (<100); Chloride 106 mmol/L (98-107); Cholesterol 217 mg/dL (<200); Estimated GFR 94.19 (mL/min/1.73m2); Glucose 87 mg/dL (74-106); HDL Cholesterol 36 mg/dL (40-60); Potassium 4.4 mmol/L (3.5-5.1); Sodium 141 mmol/L (136-145); Total Protein 7.2 g/dL (6.4-8.2); Triglyceride 108 mg/dL (<150)
[2023-04-05 23:12] LABS: PSA, Screening 0.5 ng/mL (<=4.5)
== END 2023-04-05 18:20 | disposition home or self-care (01) ==
LOC: NCHCN 18:19
PROVIDERS: Visit Provider Nurse Practitioner Family
DX: R73.03 Prediabetes (principal); E78.00 Pure hypercholesterolemia, unspecified; I10 Essential (primary) hypertension; Z12.5 Encounter for screening for malignant neoplasm of prostate
CPT/HCPCS: 80053; 80061; 84153; 83036